=== PATIENT | male | born 1940 | race Caucasian/White ===

== ENCOUNTER 2018-07-19 18:41 | Inpatient (IN) | payer OTHER ==
[~2018-07-19] VITALS: Ht 188 cm; Wt 75.0 kg
--- NOTE | ~2018-07-19 | EEG ---
[facility] [place] [address] ELECTROENCEPHALOGRAM Name: JOO JANG Room #: 224-P [facility] M.R.#: [id number] Admission: 07/19/18 Attend Phys: Daniel Lyman MD Discharge: 07/22/18 Date of : 44 Report #: [id number] THIS REPORT FOR: //name// CC: Daniel HOWARD DATE OF SERVICE: 07/21/2018 This patient is being evaluated for altered mental status. EEG was done by placing the electrodes by standard 10-20 system of electrode placement. Both referential and sequential montages were used for recording. Background activity in this patient's EEG is about 9 Hz and 30 microvolt. The patient went to sleep that is associated with bilaterally symmetrical sleep spindle and vertex sharp waves. Photic stimulation was not done. Throughout the record, no active epileptiform activity was noticed. IMPRESSION: This patient's electroencephalogram was unremarkable. Thank you very much for this referral. <ELECTRONICALLY SIGNED> By: Louis Majano MD 07/27/18 1712 [id number] 1728 Louis Majano MD /nt
--- NOTE | ~2018-07-19 | HC ---
[facility] [place] [address] CONSULTATION Name: JOO JANG Room #: 224-P [place] M.R.#: [id number] Admission: 07/19/18 Attend Phys: Daniel Lyman MD Discharge: 07/22/18 Date of : 44 Report #: [id number] THIS REPORT FOR: //name// CC: Daniel HOWARD DATE OF SERVICE: 07/21/2018 HISTORY OF PRESENT ILLNESS: This is a 78-year-old male patient who was evaluated by me for any neurological etiology for the patient's altered mental status. This patient lives in [place]. His daughter lives in [place]. He was trying to move to [place] to be close to his daughter. It looks like he got confused during the move. He said he was stressed out. He said he did not have much memory problem before, but the daughter indicates that he did have memory problem, but he was able to function in the day-to-day activities reasonably well. He is still somewhat confused, but he is better. He basically talks irrelevantly. The history is not consistent with aphasia or transient global amnesia. He was diagnosed with depression and he was started on citalopram. He took it for 2 weeks and few days ago, he just stopped taking that medication. He has heard from other people that medication can cause side effects and that is why he stopped taking it. He denies any history of stroke, but he has pretty significant history of atherosclerotic disease. He has stent put in the heart and he has history of aortic aneurysm. He is on aspirin and Plavix. He did have urinary frequency. He did have some cough. His has dementia. He does have a history of anxiety. He does have a history of kidney stone. There is a history of cholecystectomy. He had a CABG in the past. He said he was not missing his sleep and he does not drink any alcohol. REVIEW OF SYSTEMS: A 14-point review of system was carried out and it does look like he has new eye, ENT, cardiac, GI, musculoskeletal, constitutional, dermatological, hematological, psychiatric, throat, allergic symptom associated with present symptomatology. PAST MEDICAL HISTORY: Positive for some memory loss, but is negative for stroke. FAMILY HISTORY: Negative for any early age stroke. SOCIAL HISTORY: The patient does not drink any alcohol or smoke. PHYSICAL EXAMINATION: NEUROLOGY: Indicates he is alert. He is responsive. He can follow simple commands, but his memory is poor and he is confused. He got distracted and said something, which is not true. Cranial nerve examination 2-[address] [address] CONSULTATION Name: JOO JANG Room #: 224-P [place] [place] M.R.#: [id number] Admission: 07/19/18 Attend Phys: Daniel Lyman MD Discharge: 07/22/18 Date of : 44 Report #: [id number] unremarkable. His strength, sensation, reflexes, and tone is symmetrical. There is no carotid bruit. I could not look at the patient's fundus. GENERAL: He is a very well developed individual who does not have any dysmorphic features of eyes, ears, and face. HEENT: His vision and hearing looks adequate. NECK: He has no thyroid mass. EXTREMITIES: Pulses are difficult to feel. He has no edema, cyanosis or jaundice. CARDIAC: Unremarkable. RESPIRATORY: No respiratory difficulty was noticed. VITAL SIGNS: His blood pressure is 154/106, respirations 18, pulse is 78, temperature is 97.5. LABORATORY DATA: His white count is normal at 6.3. His TSH, vitamin B12 is normal. IMAGING DATA: He did not have any imaging study of the brain, the best I can tell. IMPRESSION: This patient is having confusion. This confusion is most likely related to sudden stopping of his medication and maybe some early mild cognitive impairment. I do not think anything intracranially is going on, but it was sudden onset. Because of that, I will suggest doing a CT scan of the head and if that is negative, proceeding with MRI of the brain tomorrow. I will get an EEG done. I will see if this patient improved. RECOMMENDATION: I had a long talk with the patient and the patient's daughter. I think this patient needs further workup to determine the etiology of the patient's symptoms. I agree with UTI to look for any urinary tract infection, but I will also like to do some imaging study of the brain because confusion apparently is abrupt onset. Further workup will depend upon the outcome of these testing, which we will look at and review. Thank you very much for this referral. <ELECTRONICALLY SIGNED> By: Louis Majano MD 07/27/18 1711 1452 0010 Louis Majano MD /nt
[2018-07-19 19:01] VITALS: BP 151/66
[2018-07-19 19:31] LABS: URINE BILIRUBIN NEGATIVE (Negative); URINE BLOOD NEGATIVE (Negative); URINE CLARITY CLEAR; URINE COLOR YELLOW; URINE GLUCOSE-RANDOM* NEGATIVE (Negative); URINE KETONES NEGATIVE (Negative); URINE NITRITE-REFLEX NEGATIVE (Negative); URINE PROTEIN (DIPSTICK) NEGATIVE (Negative); URINE UROBILINOGEN 0.2 E.U./dl (0.2-1.0)
[2018-07-19 19:34] LABS: URINE LEUKOCYTES-REFLEX TRACE (Negative)
[2018-07-19 19:50] LABS: ABSOLUTE NEUTROPHILS 5.9 thou/uL (1.4-8.2); BASOPHILS 0.3 % (0.0-2.0); EOSINOPHILS 3.1 % (0.0-3.0); HEMATOCRIT 40.3 % (42.0-52.0); HEMOGLOBIN 13.9 gm/dL (14.0-18.0); LYMPHOCYTES 12.9 % (24.0-44.0); MCH 30.1 pg (26.0-34.0); MCHC 34.4 g/dL (28.0-37.0); MCV 87.5 fL (80.0-100.0); MONOCYTES 10.5 % (1.0-8.0); PLATELET COUNT 154 thou/uL (150-400); POLYS 73.2 % (36.0-66.0); RDW 15.6 % (10.5-14.5); WBC 8.1 thou/uL (4.0-11.0)
[2018-07-19 19:58] LABS: CALCIUM 8.8 mg/dL (8.5-10.1); POTASSIUM 4.1 mmol/L (3.5-5.1)
[2018-07-19] MEDS ORDERED: ALLOPURINOL 10100 M1 PO (20:51)
[2018-07-19] MEDS ORDERED: MOBIC15 MG PO (20:53)
[2018-07-19] MEDS ORDERED: PLAVIX 75 MG TA75 M1 PO (20:53)
[2018-07-19] MEDS ORDERED: TOPROL XL25 MG PO (20:54)
[2018-07-19] MEDS ORDERED: LASIX 20 MG TAB20 MG PO (20:54)
[2018-07-19] MEDS ORDERED: ZETIA10 MG PO (20:55)
[2018-07-19] MEDS ORDERED: ZYRTEC10 M5 PO (20:55)
[2018-07-19] MEDS ORDERED: ASPIR 8181 MG PO (20:57)
[2018-07-19] MEDS ORDERED: CRESTOR20 MG PO (20:58)
[2018-07-19] MEDS ORDERED: NIASPAN ER 101000 M1 PO (20:58)
[2018-07-19 21:30] VITALS: BP 143/58
[2018-07-19 21:40] VITALS: BP 137/54
[2018-07-19 22:28] VITALS: BP 141/57
[2018-07-20 00:10] VITALS: BP 122/56
[2018-07-20 04:30] VITALS: BP 135/57
[2018-07-20 04:53] LABS: HEMATOCRIT 39.3 % (42.0-52.0); HEMOGLOBIN 13.3 gm/dL (14.0-18.0); MCH 29.6 pg (26.0-34.0); MCHC 33.9 g/dL (28.0-37.0); MCV 87.3 fL (80.0-100.0); RBC 4.5 mil/uL (4.50-6.00); RDW 15.9 % (10.5-14.5); WBC 6.3 thou/uL (4.0-11.0)
[2018-07-20 05:03] LABS: CALCIUM 8.3 mg/dL (8.5-10.1); CREATININE 0.9 mg/dL (0.7-1.3); POTASSIUM 3.9 mmol/L (3.5-5.1)
[2018-07-20 05:36] LABS: FOLIC ACID 18.9 ng/mL (8.6-58.9); TSH 0.884 uIU/mL (0.358-3.740)
[2018-07-20 07:26] VITALS: BP 145/68
[2018-07-20 08:54] LABS: CHOLESTEROL 110 mg/dL (<200); HDL CHOLESTEROL 54 mg/dL (>40); LDL CHOLESTEROL 39 mg/dL (<100); TRIGLYCERIDE 86 mg/dL (<150); VLDL 17 mg/dL (<40)
[2018-07-20 09:00] LABS: SERUM ASSESSMENT Clear
[2018-07-20 15:08] LABS: PSA TOTAL 1.3 ng/mL (0.0-4.0)
[2018-07-20 16:05] VITALS: BP 133/69
[2018-07-20 17:55] VITALS: BP 165/83
[2018-07-20 21:33] VITALS: BP 141/76
[2018-07-21 08:08] VITALS: BP 154/106
[2018-07-21 20:33] VITALS: BP 152/76
[2018-07-22 07:45] VITALS: BP 139/75
[2018-07-22 13:07] LABS: FREE PSA 0.28 ng/mL; FREE PSA RATIO 21.5 % (())
[2018-07-22] MEDS ORDERED: CEFUROXIME250 MG PO (15:39)
[2018-07-22 16:52] VITALS: BP 139/75
== END 2018-07-22 18:55 | disposition home or self-care (01) | DRG 91 ==
LOC: ER 18:41 → SICU 20:39 → EROBS 20:39 → 2N 21:52 → SICU 07-20 17:47 → ENTRNSPT 07-22 17:10 → SICU 07-22 18:55
PROVIDERS: Emergency Medicine; Hospitalist; Nurse Practitioner Family
DX: G92 Toxic encephalopathy (principal); E43 Unspecified severe protein-calorie malnutrition; N39.0 Urinary tract infection, site not specified; F41.9 Anxiety disorder, unspecified; E78.5 Hyperlipidemia, unspecified; I25.10 Atherosclerotic heart disease of native coronary artery without angina pectoris; F32.9 Major depressive disorder, single episode, unspecified; E78.00 Pure hypercholesterolemia, unspecified; M10.9 Gout, unspecified; J30.2 Other seasonal allergic rhinitis; G31.84 Mild cognitive impairment of uncertain or unknown etiology; M19.90 Unspecified osteoarthritis, unspecified site; R63.4 Abnormal weight loss; Z87.891 Personal history of nicotine dependence; Z87.442 Personal history of urinary calculi; Z90.49 Acquired absence of other specified parts of digestive tract; Z95.1 Presence of aortocoronary bypass graft; I25.2 Old myocardial infarction; Z88.8 Allergy status to other drugs, medicaments and biological substances; Z91.041 Radiographic dye allergy status; Z95.5 Presence of coronary angioplasty implant and graft; Z81.8 Family history of other mental and behavioral disorders; Z68.21 Body mass index [BMI] 21.0-21.9, adult; Z79.899 Other long term (current) drug therapy
CPT/HCPCS: 10081; 15002